=== PATIENT | male | born 1960 | race Native Hawaiian/Other Pacific Islander ===

== ENCOUNTER 2019-05-17 10:04 | Emergency (ER) | payer SELFPAY ==
--- NOTE | 2019-05-17 11:44 | Emergency Department Report ---
ED Back Pain/Injury HPI - General Chief Complaint: Back Pain/Injury Stated Complaint: LOWER BACK PAIN Time Seen by Provider: 05/17/19 11:23 Source: patient Limitations: Language Barrier - History of Present Illness Initial Comments: This is a 58-year-old male who presents to the emergency low back pain for 4 days. The patient reports falling last Thursday landing on buttock. He reports pain is 10 out of 10 on pain scale worse with sitting. Patient states he went to a clinic and was prescribed Flexeril and ibuprofen which is not improving symptoms. He denies change in urinary and bowel pattern, anesthesias, weakness, swelling, or bruising. MD Complaint: back pain Onset/Timin -: days(s) Similar Symptoms Previously: No Place: street Severity: severe Severity scale (0 -10): 10 Quality: aching Consistency: constant Improves With: none Worsens With: sitting upright Context: fall Associated Symptoms: denies: numbness, difficulty urinating, incontinence, fever/chills Treatments Prior to Arrival: NSAIDS, other medications (muscle relaxers) - Related Data Previous Rx's Medication Instructions Recorded Last Taken Type Ibuprofen [Motrin 600 MG tab] 600 mg PO Q8H PRN #30 tablet 01/30/15 Unknown Rx Naproxen [Naprosyn] 500 mg PO BID PRN #20 tablet 05/17/19 Unknown Rx methOCARBAMOL [Robaxin TAB] 750 mg PO BID PRN #15 tab 05/17/19 Unknown Rx Allergies Allergy/AdvReac Type Severity Reaction Status Date / Time No Known Allergies Allergy Unverified 01/30/15 10:49 ED Review of Systems ROS: Stated complaint: LOWER BACK PAIN Other details as noted in HPI Constitutional: denies: chills, fever Respiratory: denies: cough, shortness of breath, wheezing Cardiovascular: denies: chest pain, palpitations Gastrointestinal: denies: abdominal pain, nausea, diarrhea Musculoskeletal: back pain. denies: joint swelling, arthralgia Skin: denies: rash, lesions Neurological: denies: headache, weakness, paresthesias Psychiatric: denies: anxiety, depression ED Back Pain Physical Exam - Exam General: Vital signs noted. No distress. Alert and acting appropriately. Back/Abdomen: Yes Sacroiliac Tenderness, No Abdominal Tenderness, No Perithoracic Tenderness, No Perilumbar Tenderness, No Flank Tenderness, No Straight Leg Raise Pain Neuro: Yes Normal Sensation, Yes Normal DTR's, Yes Normal Gait, No Motor Weakness ED Course Vital Signs 05/17/19 10:39 Temperature 98.4 F Pulse Rate 68 Respiratory 17 Rate Blood Pressure 165/80 O2 Sat by Pulse 98 Oximetry ED Medical Decision Making - Radiology Data Radiology results: report reviewed LUMBOSACRAL SPINE, 3 VIEWS INDICATION: low back pain. COMPARISON: None. IMPRESSION: Normal alignment. Moderate degenerative disc disease is identified at L3-4 and L4-5. A bridging or near bridging right lateral osteophyte is identified at L3-4. Mild facet arthropathy is identified at L3-4, L4-5 and L5-S1. No evidence for compression deformity, subluxation or bone lesion. The sacrum and SI joints are unremarkable. - Medical Decision Making Patient was examined by me. Patient is nontoxic appearing and stable. Vitals are normal. Obtained x-ray of L-spine. Findings of Moderate degenerative disc disease is identified at L3-4 and L4-5. A bridging or near bridging right lateral osteophyte is identified at L3-4. Mild facet arthropathy is identified at L3-4, L4-5 and L5-S1. No evidence for compression deformity, subluxation or bone lesion. The sacrum and SI joints are unremarkable. Given analgesics while in the ER. Start robaxin and naproxen for pain. Instructed to follow up with PCP. Patient discharged home in stable condition. Critical care attestation.: If time is entered above; I have spent that time in minutes in the direct care of this critically ill patient, excluding procedure time. ED Disposition Clinical Impression: Strain of muscle, fascia and tendon of lower back, initial encounter, Degenerative disc disease, lumbar Low back pain Qualifiers: Chronicity: acute Back pain laterality: bilateral Sciatica presence: without sciatica Qualified Code(s): M54.5 - Low back pain Disposition: TO HOME OR SELFCARE Is pt being admited?: No Does the pt Need Aspirin: No Condition: Stable Instructions: Muscle Strain (ED), Degenerative Disc Disease (ED) Additional Instructions: Du repos Utilisez de la glace ou de la chaleur ted la zone touche pendant 20 minutes et laissez reposer pendant 2 heures. Prenez po mdicaments contre la douleur au besoin. Ne conduisez pas et nutilisez pas de machinerie lourde en prenant po relaxants musculaires car ils pourraient causer de la somnolence. Suivi avec le fournisseur de soins primaires dans 2-3 jours. Rest Use ice or heat on affected area for 20 minutes and off for 2 hours. Take pain medication as needed for pain. Don't drive or operate heavy machinery while taking muscle relaxers because they may cause drowsiness. Follow up with Primary Care Provider in 2-3 days. Prescriptions: Naproxen [Naprosyn] 500 mg PO BID PRN #20 tablet PRN Reason: Pain , Severe (7-10) methOCARBAMOL [Robaxin TAB] 750 mg PO BID PRN #15 tab PRN Reason: Muscle Spasm Referrals: [facility] [Outside] - 3-5 Days [facility] [Outside] - 3-5 Days [facility] [Outside] - 3-5 Days VINCENZO LEGGETT MD [Staff Physician] - 3-5 Days Time of Disposition: 13:22 Print Language: POLISH
--- NOTE | 2019-05-17 12:22 | XRay Report ---
LUMBOSACRAL SPINE, 3 VIEWS INDICATION: low back pain. COMPARISON: None. IMPRESSION: Normal alignment. Moderate degenerative disc disease is identified at L3-4 and L4-5. A bridging or near bridging right lateral osteophyte is identified at L3-4. Mild facet arthropathy is i dentified at L3-4, L4-5 and L5-S1. No evidence for compression deformity, subluxation or bone lesion. The sacrum and SI joints are unremarkable. Signer Name: Marquez Whiteside Jr, MD Signed: 05/17/2019 12:18 PM Workstation Name: [id number]
[2019-05-17 13:37] VITALS: BP 145/98
== END 2019-05-17 13:31 | disposition home or self-care (01) ==
LOC: EDBD → ED 10:04
DX: S39.012A Strain of muscle, fascia and tendon of lower back, initial encounter (principal); M51.36 Other intervertebral disc degeneration, lumbar region; Z79.899 Other long term (current) drug therapy; X58.XXXA Exposure to other specified factors, initial encounter; Y93.89 Activity, other specified; Y92.89 Other specified places as the place of occurrence of the external cause; Y99.8 Other external cause status
CPT/HCPCS: 72100